=== PATIENT | male | born 1960 | race African-American/Black ===

== ENCOUNTER 2016-09-04 08:35 | Emergency (ER) | payer MEDICARE, OTHER ==
[~2016-09-04] VITALS: Ht 172.7 cm; Wt 90.9 kg
[~2016-09-04 08:35] MED LIST: AMLO2.5T29 PO; BENZ2TAB10 PO; CLON.5 PO; QUET200T PO
[2016-09-04] MEDS ORDERED: SODIUM CHLORIDE 0.9% 1,000 ML IV ONE (09:00)
[2016-09-04 09:04] LABS: BASOPHILS % (AUTO) 0.3 % (0.0-2.0); EOSINOPHILS % (AUTO) 1.4 % (1.0-6.0); HEMATOCRIT 42.6 % (41-53); HEMOGLOBIN 13.8 g/dL (13.5-17.5); LYMPHOCYTES # (AUTO) 1.5 K/uL (1.0-4.8); LYMPHOCYTES % (AUTO) 24.8 % (22.0-44.0); MEAN CORPUSCULAR HGB CONC 32.3 G/dL (31.0-37.0); MEAN CORPUSCULAR VOLUME 87 fL (80-100); MONOCYTES # (AUTO) 0.4 K/uL (0.1-1.0); NEUTROPHILS % (AUTO) 66.5 % (40.0-70.0); PLATELET COUNT (AUTO) 162 K/uL (150-450); RED BLOOD CELL COUNT(AUTO) 4.92 MIL/uL (4.50-5.90); RED CELL DISTRIBUTION WIDTH 13.8 % (11.5-14.5)
[2016-09-04 09:09] LABS: ANION GAP 7 mmol/L (8-16); CALCIUM, TOTAL 8.6 mg/dL (8.8-10.5); CARBON DIOXIDE 29 mmol/L (22-29); CHLORIDE 105 mmol/L (98-107); GLOMERULAR FILTR. RATE CALC > 60 mL/min (>60); POTASSIUM 3.5 mmol/L (3.5-5.1); SODIUM SERUM 141 mmol/L (136-145); UREA NITROGEN, BLOOD 16 mg/dL (7-18)
[2016-09-04 09:11] LABS: GLUCOSE, URINE (UA) NEGATIVE (NEGATIVE); KETONES,URINE NEGATIVE (NEGATIVE); LEUKOCYTE ESTERASE ,URINE NEGATIVE (NEGATIVE); OCCULT BLOOD,URINE NEGATIVE (NEGATIVE); PROTEIN,URINE NEGATIVE (NEGATIVE)
[2016-09-04 09:15] LABS: ADD UA MICROSCOPIC NO; APPEARANCE,URINE HAZY (CLEAR)
[2016-09-04 09:15] LABS: ALANINE AMINOTRANSFERASE 24 U/L (12-78); ALBUMIN 3.9 g/dL (3.4-5.0); ASPARTATE AMINOTRANSFERASE 27 U/L (15-37); BILIRUBIN,TOTAL 0.8 mg/dL (0.1-1.0); TOTAL PROTEIN, SERUM 7.4 g/dL (6.4-8.2)
[2016-09-04 10:30] VITALS: BP 139/94
== END 2016-09-04 11:21 | disposition home or self-care (01) ==
LOC: EMS 08:39
DX: K59.00 Constipation, unspecified (principal); I10 Essential (primary) hypertension; Z88.8 Allergy status to other drugs, medicaments and biological substances
CPT/HCPCS: 36415; 74010; 80053; 81003; 83690; 85025; 96360; 99285; J7030

== ENCOUNTER 2017-11-18 08:54 | Emergency (ER) | payer MEDICARE, OTHER ==
[~2017-11-18] VITALS: Ht 170.2 cm; Wt 75.0 kg
[2017-11-18] MEDS ORDERED: LORazepam 2 MG TABLET PO ONE (10:45)
[2017-11-18 11:05] LABS: BASOPHILS % (AUTO) 0.5 % (0.0-2.0); EOSINOPHILS % (AUTO) 1.5 % (1.0-6.0); HEMATOCRIT 40.1 % (41-53); HEMOGLOBIN 14.1 g/dL (13.5-17.5); LYMPHOCYTES # (AUTO) 1.3 K/uL (1.0-4.8); MEAN CORPUSCULAR HEMOGLOBIN 29.7 pg (26.0-34.0); MEAN CORPUSCULAR HGB CONC 35.1 G/dL (31.0-37.0); MEAN CORPUSCULAR VOLUME 85 fL (80-100); MONOCYTES # (AUTO) 0.4 K/uL (0.1-1.0); MONOCYTES % (AUTO) 8.5 % (2.0-9.0); NEUTROPHILS # (AUTO) 3.4 K/uL (1.8-7.7); NEUTROPHILS % (AUTO) 64.5 % (40.0-70.0); PLATELET COUNT (AUTO) 149 K/uL (150-450); RED BLOOD CELL COUNT(AUTO) 4.75 MIL/uL (4.50-5.90); RED CELL DISTRIBUTION WIDTH 13.8 % (11.5-14.5)
[2017-11-18 11:25] LABS: ANION GAP 13 mmol/L (8-16); CALCIUM, TOTAL 8.8 mg/dL (8.8-10.5); CARBON DIOXIDE 23 mmol/L (22-29); CHLORIDE 107 mmol/L (98-107); CREATININE 0.94 mg/dL (0.60-1.30); GLOMERULAR FILTR. RATE CALC > 60 mL/min (>60); GLUCOSE,RANDOM 93 mg/dL (70-110); POTASSIUM 3.1 mmol/L (3.5-5.1); SODIUM SERUM 143 mmol/L (136-145); UREA NITROGEN, BLOOD 15 mg/dL (7-18)
[2017-11-18 11:30] LABS: ALANINE AMINOTRANSFERASE 24 U/L (12-78); ALBUMIN 3.8 g/dL (3.4-5.0); ALKALINE PHOSPHATASE 70 U/L (46-116); ASPARTATE AMINOTRANSFERASE 29 U/L (15-37); BILIRUBIN,TOTAL 0.8 mg/dL (0.1-1.0); LIPASE 68 U/L (73-393); TOTAL PROTEIN, SERUM 7.1 g/dL (6.4-8.2)
[2017-11-18] MEDS ORDERED: POTASSIUM CHLORIDE 20 MEQ ER TABLET PO ONE (11:45)
[2017-11-18 13:01] VITALS: BP 147/97
== END 2017-11-18 13:30 | disposition home or self-care (01) ==
LOC: EMS 08:55
DX: F41.9 Anxiety disorder, unspecified (principal); K59.00 Constipation, unspecified; F31.9 Bipolar disorder, unspecified; F20.9 Schizophrenia, unspecified; I10 Essential (primary) hypertension; Z88.8 Allergy status to other drugs, medicaments and biological substances
CPT/HCPCS: 74019; 99285

== ENCOUNTER 2018-01-13 14:53 | Emergency (ER) | payer MEDICARE, OTHER ==
[~2018-01-13] VITALS: Ht 170.2 cm; Wt 77.3 kg
[2018-01-13 16:43] VITALS: BP 146/84
[2018-01-13 16:48] LABS: BASOPHILS % (AUTO) 0.3 % (0.0-2.0); EOSINOPHILS % (AUTO) 0.5 % (1.0-6.0); HEMATOCRIT 41.6 % (41-53); HEMOGLOBIN 13.9 g/dL (13.5-17.5); LYMPHOCYTES % (AUTO) 28.1 % (22.0-44.0); MEAN CORPUSCULAR HEMOGLOBIN 28.5 pg (26.0-34.0); MEAN CORPUSCULAR HGB CONC 33.3 G/dL (31.0-37.0); MEAN CORPUSCULAR VOLUME 86 fL (80-100); MONOCYTES # (AUTO) 0.6 K/uL (0.1-1.0); NEUTROPHILS # (AUTO) 4.5 K/uL (1.8-7.7); NEUTROPHILS % (AUTO) 63.1 % (40.0-70.0); PLATELET COUNT (AUTO) 159 K/uL (150-450); RED BLOOD CELL COUNT(AUTO) 4.86 MIL/uL (4.50-5.90); RED CELL DISTRIBUTION WIDTH 13.9 % (11.5-14.5)
[2018-01-13] MEDS ORDERED: VALS160T2 PO (16:57)
[2018-01-13 17:01] LABS: ANION GAP 10 mmol/L (8-16); CALCIUM, TOTAL 8.5 mg/dL (8.8-10.5); CARBON DIOXIDE 25 mmol/L (22-29); CHLORIDE 109 mmol/L (98-107); CREATININE 1.04 mg/dL (0.60-1.30); GLOMERULAR FILTR. RATE CALC > 60 mL/min (>60); GLUCOSE,RANDOM 94 mg/dL (70-110); SODIUM SERUM 144 mmol/L (136-145); UREA NITROGEN, BLOOD 16 mg/dL (7-18)
[2018-01-13 17:06] LABS: ALANINE AMINOTRANSFERASE 19 U/L (12-78); ALBUMIN 3.6 g/dL (3.4-5.0); ALKALINE PHOSPHATASE 63 U/L (46-116); ASPARTATE AMINOTRANSFERASE 25 U/L (15-37); BILIRUBIN,TOTAL 0.9 mg/dL (0.1-1.0); TOTAL PROTEIN, SERUM 7.1 g/dL (6.4-8.2)
[2018-01-13] MEDS ORDERED: BENZTROPINE MESYLATE 2 MG TABLET PO ONE (17:15)
[2018-01-13] MEDS ORDERED: POTASSIUM CHLORIDE 20 MEQ ER TABLET PO ONE (17:30)
== END 2018-01-13 18:12 | disposition home or self-care (01) ==
LOC: EMS 14:53
DX: F20.9 Schizophrenia, unspecified (principal); F31.9 Bipolar disorder, unspecified; I10 Essential (primary) hypertension; Z88.8 Allergy status to other drugs, medicaments and biological substances
CPT/HCPCS: 36415; 80053; 85025; 99284; G0480

== ENCOUNTER 2018-01-14 09:19 | Emergency (ER) | payer MEDICARE, OTHER ==
[~2018-01-14] VITALS: Ht 170.2 cm; Wt 77.3 kg
[~2018-01-14 09:19] MED LIST changes: +VALS160T2 PO
[2018-01-14 10:33] LABS: BASOPHILS % (AUTO) 0.4 % (0.0-2.0); EOSINOPHILS % (AUTO) 1.1 % (1.0-6.0); HEMATOCRIT 41.2 % (41-53); HEMOGLOBIN 13.8 g/dL (13.5-17.5); LYMPHOCYTES # (AUTO) 1.4 K/uL (1.0-4.8); LYMPHOCYTES % (AUTO) 33.6 % (22.0-44.0); MEAN CORPUSCULAR HEMOGLOBIN 29.2 pg (26.0-34.0); MEAN CORPUSCULAR HGB CONC 33.4 G/dL (31.0-37.0); MEAN CORPUSCULAR VOLUME 87 fL (80-100); MONOCYTES # (AUTO) 0.3 K/uL (0.1-1.0); MONOCYTES % (AUTO) 8.2 % (2.0-9.0); NEUTROPHILS # (AUTO) 2.4 K/uL (1.8-7.7); NEUTROPHILS % (AUTO) 56.7 % (40.0-70.0); PLATELET COUNT (AUTO) 146 K/uL (150-450); RED BLOOD CELL COUNT(AUTO) 4.72 MIL/uL (4.50-5.90); RED CELL DISTRIBUTION WIDTH 13.7 % (11.5-14.5)
[2018-01-14 10:37] LABS: ANION GAP 7 mmol/L (8-16); CALCIUM, TOTAL 8.7 mg/dL (8.8-10.5); CARBON DIOXIDE 26 mmol/L (22-29); CHLORIDE 111 mmol/L (98-107); GLOMERULAR FILTR. RATE CALC > 60 mL/min (>60); GLUCOSE,RANDOM 92 mg/dL (70-110); POTASSIUM 3.3 mmol/L (3.5-5.1); SODIUM SERUM 144 mmol/L (136-145); UREA NITROGEN, BLOOD 16 mg/dL (7-18)
[2018-01-14 10:43] LABS: ALANINE AMINOTRANSFERASE 20 U/L (12-78); ALBUMIN 3.4 g/dL (3.4-5.0); ALKALINE PHOSPHATASE 57 U/L (46-116); ASPARTATE AMINOTRANSFERASE 23 U/L (15-37); BILIRUBIN,TOTAL 0.9 mg/dL (0.1-1.0); LIPASE 55 U/L (73-393); TOTAL PROTEIN, SERUM 6.6 g/dL (6.4-8.2)
[2018-01-14 10:45] LABS: APPEARANCE,URINE CLEAR (CLEAR); BILIRUBIN,URINE NEGATIVE (NEGATIVE); GLUCOSE, URINE (UA) NEGATIVE (NEGATIVE); KETONES,URINE TRACE mg/dL (NEGATIVE); LEUKOCYTE ESTERASE ,URINE NEGATIVE (NEGATIVE); NITRATE,URINE NEGATIVE (NEGATIVE); OCCULT BLOOD,URINE NEGATIVE (NEGATIVE); PH,URINE 5.5 (5.0-8.0); PROTEIN,URINE NEGATIVE (NEGATIVE)
[2018-01-14 11:18] VITALS: BP 135/85
== END 2018-01-14 11:19 | disposition home or self-care (01) ==
LOC: EMS 09:21
DX: F20.9 Schizophrenia, unspecified (principal); R10.84 Generalized abdominal pain; F41.9 Anxiety disorder, unspecified; F31.9 Bipolar disorder, unspecified; I10 Essential (primary) hypertension; Z88.8 Allergy status to other drugs, medicaments and biological substances
CPT/HCPCS: 99284

== ENCOUNTER 2018-01-31 10:29 | Inpatient (IN) | payer MEDICARE, MEDICAID ==
[~2018-01-31] VITALS: Ht 170.2 cm; Wt 88.5 kg
[~2018-01-31 10:29] MED LIST changes: -VALS160T2 PO
[2018-01-31] MEDS ORDERED: LORazepam 2 MG/ML VIAL IM ONE ×2 (11:30→13:45)
[2018-01-31] MEDS ORDERED: FluPHENAZine HCL 2.5 MG/ML INJ IM ONE (11:30)
[2018-01-31 12:58] LABS: BASOPHILS % (AUTO) 0.4 % (0.0-2.0); EOSINOPHILS % (AUTO) 0.2 % (1.0-6.0); HEMATOCRIT 43.7 % (41-53); HEMOGLOBIN 14.8 g/dL (13.5-17.5); LYMPHOCYTES # (AUTO) 1.1 K/uL (1.0-4.8); LYMPHOCYTES % (AUTO) 14.9 % (22.0-44.0); MEAN CORPUSCULAR HEMOGLOBIN 29.7 pg (26.0-34.0); MEAN CORPUSCULAR VOLUME 88 fL (80-100); MONOCYTES # (AUTO) 0.5 K/uL (0.1-1.0); MONOCYTES % (AUTO) 6.9 % (2.0-9.0); NEUTROPHILS # (AUTO) 5.8 K/uL (1.8-7.7); NEUTROPHILS % (AUTO) 77.6 % (40.0-70.0); PLATELET COUNT (AUTO) 181 K/uL (150-450)
[2018-01-31 13:19] LABS: ANION GAP 15 mmol/L (8-16); CALCIUM, TOTAL 9.9 mg/dL (8.8-10.5); CARBON DIOXIDE 26 mmol/L (22-29); CHLORIDE 110 mmol/L (98-107); CREATININE 1.47 mg/dL (0.60-1.30); GLOMERULAR FILTR. RATE CALC 60 mL/min (>60); GLUCOSE,RANDOM 79 mg/dL (70-110); POTASSIUM 4.7 mmol/L (3.5-5.1); SODIUM SERUM 151 mmol/L (136-145); UREA NITROGEN, BLOOD 17 mg/dL (7-18)
[2018-01-31 13:24] LABS: ALANINE AMINOTRANSFERASE 27 U/L (12-78); ALBUMIN 4.1 g/dL (3.4-5.0); ALKALINE PHOSPHATASE 73 U/L (46-116); ASPARTATE AMINOTRANSFERASE 38 U/L (15-37); BILIRUBIN,TOTAL 0.9 mg/dL (0.1-1.0); TOTAL PROTEIN, SERUM 7.3 g/dL (6.4-8.2)
[2018-01-31] MEDS ORDERED: HydrOXYzine PAMOATE 50 MG CAPSULE PO PRN (15:15)
[2018-01-31] MEDS ORDERED: MAGNESIUM HYDROXIDE SUSPENSION 30 ML UDCUP PO PRN (15:15)
[2018-01-31] MEDS ORDERED: MAG HYDROX/AL HYDROX/SIMETH ES 30 ML SUSPENSION UDCUP PO PRN (15:15)
[2018-01-31] MEDS ORDERED: ACETAMINOPHEN 325 MG TABLET PO PRN (15:15)
[2018-01-31] MEDS ORDERED: TUBERCULIN, PURIFIED PROTEIN DERIVATIVE 5 TU/0.1 ML SYG ID ONE (15:15)
[2018-01-31] MEDS ORDERED: GuaiFENesin/D-METHORPHAN [SUGAR-FREE] 200-20MG/10 ML SYRUP UDCUP PO PRN (15:15)
[2018-01-31] MEDS ORDERED: LOPERAMIDE HCL 2 MG CAPSULE PO PRN (15:15)
[2018-01-31] MEDS ORDERED: OLANZapine 5 MG RAPDIS TABLET PO PRN (15:15)
[2018-01-31] MEDS ORDERED: PROMETHAZINE HCL 25 MG TABLET PO PRN (15:15)
[2018-01-31 16:27] LABS: AMPHET/METH SCREEN,URINE NEGATIVE (NEGATIVE); BARBITURATE SCREEN, URINE NEGATIVE (NEGATIVE); BENZODIAZEPINES SCREEN,URINE NEGATIVE (NEGATIVE); CANNABINOID SCREEN,URINE NEGATIVE (NEGATIVE); COCAINE SCREEN,URINE NEGATIVE (NEGATIVE); METHADONE SCREEN, URINE NEGATIVE (NEGATIVE); OPIATE SCREEN,URINE NEGATIVE (NEGATIVE); PHENCYCLIDINE SCREEN,URINE NEGATIVE (NEGATIVE)
[2018-01-31] MEDS: QUEtiapine FUMARATE 100 MG TABLET PO PRN (19:37)
[2018-01-31] MEDS: LORazepam 2 MG TABLET PO PRN (19:37)
[2018-01-31] MEDS: ClonazePAM 0.5 MG TABLET PO SCH (20:54)
[2018-01-31] MEDS: BENZTROPINE MESYLATE 2 MG TABLET PO SCH (20:54)
[2018-01-31] MEDS: THIAMINE HCL 100 MG TABLET PO SCH (20:55)
[2018-01-31] MEDS ORDERED: OLANZapine 5 MG RAPDIS TABLET PO SCH (21:00)
[2018-01-31 21:07] VITALS: BP 100/64
[2018-01-31] MEDS: PROPRANOLOL HCL 10 MG TABLET PO SCH (21:46)
[2018-01-31] MEDS: QUEtiapine FUMARATE 200 MG TABLET PO SCH (21:46)
[2018-02-01 06:15] VITALS: BP 112/70
[2018-02-01 07:10] LABS: BASOPHILS % (AUTO) 0.3 % (0.0-2.0); EOSINOPHILS % (AUTO) 1.5 % (1.0-6.0); HEMATOCRIT 40.3 % (41-53); HEMOGLOBIN 13.9 g/dL (13.5-17.5); LYMPHOCYTES # (AUTO) 1.5 K/uL (1.0-4.8); LYMPHOCYTES % (AUTO) 22.1 % (22.0-44.0); MEAN CORPUSCULAR HEMOGLOBIN 30.1 pg (26.0-34.0); MEAN CORPUSCULAR HGB CONC 34.6 G/dL (31.0-37.0); MEAN CORPUSCULAR VOLUME 87 fL (80-100); MONOCYTES # (AUTO) 0.6 K/uL (0.1-1.0); MONOCYTES % (AUTO) 8.3 % (2.0-9.0); NEUTROPHILS # (AUTO) 4.6 K/uL (1.8-7.7); NEUTROPHILS % (AUTO) 67.8 % (40.0-70.0); PLATELET COUNT (AUTO) 158 K/uL (150-450); RED BLOOD CELL COUNT(AUTO) 4.64 MIL/uL (4.50-5.90)
[2018-02-01 07:43] LABS: HEMOGLOBIN A1C 5.1 % (4.5-6.2)
[2018-02-01 07:49] LABS: ALANINE AMINOTRANSFERASE 52 U/L (12-78); ALBUMIN 3.2 g/dL (3.4-5.0); ALKALINE PHOSPHATASE 59 U/L (46-116); ANION GAP 8 mmol/L (8-16); ASPARTATE AMINOTRANSFERASE 151 U/L (15-37); BILIRUBIN,TOTAL 0.9 mg/dL (0.1-1.0); CALCIUM, TOTAL 8.4 mg/dL (8.8-10.5); CARBON DIOXIDE 27 mmol/L (22-29); CHLORIDE 108 mmol/L (98-107); CHOL/HDL RATIO 3.2 (4.2-7.3); CHOLESTEROL 139 mg/dL (131-200); CREATININE 1.31 mg/dL (0.60-1.30); FREE T4 (FREE THYROXINE) 0.86 ng/dL (0.76-1.46); GLOMERULAR FILTR. RATE CALC > 60 mL/min (>60); GLUCOSE,RANDOM 99 mg/dL (70-110); HDL CHOLESTEROL 44 mg/dL (40-60); LDL CHOL (CALC.) 83 mg/dL (0-130); POTASSIUM 3.7 mmol/L (3.5-5.1); SODIUM SERUM 143 mmol/L (136-145); THYROID STIMULATING HORMONE 1.34 uIU/mL (0.36-3.74); TOTAL PROTEIN, SERUM 6.3 g/dL (6.4-8.2); TRIGLYCERIDES 62 mg/dL (15-150); UREA NITROGEN, BLOOD 27 mg/dL (7-18)
[2018-02-01 08:33] VITALS: BP 135/92
[2018-02-01] MEDS ORDERED: FLUoxetine HCL 20 MG CAPSULE PO SCH (09:00)
[2018-02-01] MEDS: BENZTROPINE MESYLATE 2 MG TABLET PO SCH ×3 (09:12→16:15)
[2018-02-01] MEDS: THIAMINE HCL 100 MG TABLET PO SCH ×2 (09:12→16:15)
[2018-02-01] MEDS: ClonazePAM 0.5 MG TABLET PO SCH ×2 (09:13→16:15)
[2018-02-01] MEDS: FOLIC ACID 1 MG TABLET PO SCH (09:13)
[2018-02-01] MEDS: PROPRANOLOL HCL 10 MG TABLET PO SCH ×4 (09:13→20:55)
[2018-02-01] MEDS: MULTIVITAMINS WITH MINERALS, THERAPEUTIC TABLET PO SCH (09:13)
[2018-02-01 12:53] VITALS: BP 118/81
[2018-02-01 16:38] VITALS: BP 136/81
[2018-02-01] MEDS: QUEtiapine FUMARATE 200 MG TABLET PO SCH (20:55)
[2018-02-02 05:47] VITALS: BP 117/78
[2018-02-02 07:33] LABS: ALANINE AMINOTRANSFERASE 55 U/L (12-78); ALKALINE PHOSPHATASE 58 U/L (46-116); ANION GAP 8 mmol/L (8-16); ASPARTATE AMINOTRANSFERASE 124 U/L (15-37); BILIRUBIN,TOTAL 0.4 mg/dL (0.1-1.0); CALCIUM, TOTAL 8.1 mg/dL (8.8-10.5); CARBON DIOXIDE 27 mmol/L (22-29); CHLORIDE 109 mmol/L (98-107); CREATININE 1.08 mg/dL (0.60-1.30); GLOMERULAR FILTR. RATE CALC > 60 mL/min (>60); GLUCOSE,RANDOM 93 mg/dL (70-110); POTASSIUM 3.6 mmol/L (3.5-5.1); SODIUM SERUM 144 mmol/L (136-145); TOTAL PROTEIN, SERUM 5.7 g/dL (6.4-8.2); UREA NITROGEN, BLOOD 30 mg/dL (7-18)
[2018-02-02 08:00] VITALS: BP 115/73
[2018-02-02] MEDS ORDERED: MULTIVITAMINS WITH IRON TABLET PO SCH (09:00)
[2018-02-02] MEDS: FOLIC ACID 1 MG TABLET PO SCH (09:10)
[2018-02-02] MEDS: PROPRANOLOL HCL 10 MG TABLET PO SCH ×4 (09:10→21:12)
[2018-02-02] MEDS: BENZTROPINE MESYLATE 2 MG TABLET PO SCH ×3 (09:11→17:10)
[2018-02-02] MEDS: MULTIVITAMINS WITH MINERALS, THERAPEUTIC TABLET PO SCH (09:11)
[2018-02-02] MEDS: THIAMINE HCL 100 MG TABLET PO SCH ×2 (09:11→17:10)
[2018-02-02] MEDS: ClonazePAM 0.5 MG TABLET PO SCH ×2 (09:11→17:10)
[2018-02-02 16:30] VITALS: BP 138/90
[2018-02-02] MEDS: QUEtiapine FUMARATE 200 MG TABLET PO SCH (21:12)
[2018-02-03 05:13] VITALS: BP 127/84
[2018-02-03 08:31] VITALS: BP 134/88
[2018-02-03] MEDS: BENZTROPINE MESYLATE 2 MG TABLET PO SCH ×3 (08:41→17:18)
[2018-02-03] MEDS: FOLIC ACID 1 MG TABLET PO SCH (08:41)
[2018-02-03] MEDS: THIAMINE HCL 100 MG TABLET PO SCH ×2 (08:41→17:18)
[2018-02-03] MEDS: MULTIVITAMINS WITH MINERALS, THERAPEUTIC TABLET PO SCH (08:41)
[2018-02-03] MEDS: PROPRANOLOL HCL 10 MG TABLET PO SCH ×4 (08:41→21:09)
[2018-02-03] MEDS: ClonazePAM 0.5 MG TABLET PO SCH ×2 (08:41→17:18)
[2018-02-03 12:10] VITALS: BP 153/93
[2018-02-03 14:00] VITALS: BP 134/91
[2018-02-03 16:00] VITALS: BP 140/90
[2018-02-03] MEDS: LORazepam 2 MG TABLET PO PRN (17:18)
[2018-02-03] MEDS: QUEtiapine FUMARATE 100 MG TABLET PO PRN (17:18)
[2018-02-03] MEDS: ZOLPIDEM TARTRATE 10 MG TABLET PO PRN (21:09)
[2018-02-03] MEDS: QUEtiapine FUMARATE 200 MG TABLET PO SCH (21:09)
[2018-02-03] MEDS ORDERED: *PATIENT'S OWN MED [ENTER DRUG, DOSE, FREQUENCY IN COMMENTS] CLINICAL ONE (22:00)
[2018-02-04 06:07] VITALS: BP 142/89
[2018-02-04 08:11] VITALS: BP 149/89
[2018-02-04] MEDS: VALBENAZINE 40 MG PO SCH (09:58)
[2018-02-04] MEDS: BENZTROPINE MESYLATE 2 MG TABLET PO SCH ×3 (09:58→16:48)
[2018-02-04] MEDS: MULTIVITAMINS WITH MINERALS, THERAPEUTIC TABLET PO SCH (09:59)
[2018-02-04] MEDS: ClonazePAM 0.5 MG TABLET PO SCH ×2 (09:59→16:48)
[2018-02-04] MEDS: FOLIC ACID 1 MG TABLET PO SCH (09:59)
[2018-02-04] MEDS: THIAMINE HCL 100 MG TABLET PO SCH ×2 (09:59→16:48)
[2018-02-04] MEDS: PROPRANOLOL HCL 10 MG TABLET PO SCH ×4 (09:59→20:23)
[2018-02-04 16:00] VITALS: BP 137/92
[2018-02-04] MEDS: LORazepam 2 MG TABLET PO PRN (16:48)
[2018-02-04] MEDS: QUEtiapine FUMARATE 200 MG TABLET PO SCH (20:23)
[2018-02-04] MEDS: ZOLPIDEM TARTRATE 10 MG TABLET PO PRN (20:23)
[2018-02-05 06:18] VITALS: BP 140/89
[2018-02-05 08:20] VITALS: BP 118/72
[2018-02-05] MEDS: PROPRANOLOL HCL 10 MG TABLET PO SCH ×4 (08:43→20:19)
[2018-02-05] MEDS: BENZTROPINE MESYLATE 2 MG TABLET PO SCH ×3 (08:43→16:51)
[2018-02-05] MEDS: FOLIC ACID 1 MG TABLET PO SCH (08:43)
[2018-02-05] MEDS: MULTIVITAMINS WITH MINERALS, THERAPEUTIC TABLET PO SCH (08:43)
[2018-02-05] MEDS: THIAMINE HCL 100 MG TABLET PO SCH ×2 (08:43→16:53)
[2018-02-05] MEDS: ClonazePAM 0.5 MG TABLET PO SCH ×2 (08:43→16:51)
[2018-02-05] MEDS: VALBENAZINE 40 MG PO SCH (08:44)
[2018-02-05 16:00] VITALS: BP 138/89
[2018-02-05] MEDS: QUEtiapine FUMARATE 200 MG TABLET PO SCH (20:14)
[2018-02-06 05:54] VITALS: BP 140/78
[2018-02-06 08:43] VITALS: BP 138/90
[2018-02-06] MEDS: BENZTROPINE MESYLATE 2 MG TABLET PO SCH ×3 (10:10→17:04)
[2018-02-06] MEDS: ClonazePAM 0.5 MG TABLET PO SCH ×2 (10:10→17:04)
[2018-02-06] MEDS: MULTIVITAMINS WITH MINERALS, THERAPEUTIC TABLET PO SCH (10:10)
[2018-02-06] MEDS: PROPRANOLOL HCL 10 MG TABLET PO SCH ×4 (10:10→20:21)
[2018-02-06] MEDS: VALBENAZINE 40 MG PO SCH (10:10)
[2018-02-06] MEDS: FOLIC ACID 1 MG TABLET PO SCH (10:10)
[2018-02-06] MEDS: THIAMINE HCL 100 MG TABLET PO SCH ×2 (10:13→17:04)
[2018-02-06] MEDS: QUEtiapine FUMARATE 25 MG TABLET PO SCH (17:09)
[2018-02-06 17:43] VITALS: BP 142/81
[2018-02-06] MEDS: QUEtiapine FUMARATE 200 MG TABLET PO SCH (20:15)
[2018-02-07 06:01] VITALS: BP 137/94
[2018-02-07 08:09] VITALS: BP 140/86
[2018-02-07] MEDS: BENZTROPINE MESYLATE 2 MG TABLET PO SCH ×3 (08:48→16:00)
[2018-02-07] MEDS: ClonazePAM 0.5 MG TABLET PO SCH ×2 (08:48→16:00)
[2018-02-07] MEDS: VALBENAZINE 40 MG PO SCH (08:48)
[2018-02-07] MEDS: MULTIVITAMINS WITH MINERALS, THERAPEUTIC TABLET PO SCH (08:48)
[2018-02-07] MEDS: QUEtiapine FUMARATE 25 MG TABLET PO SCH ×3 (08:48→16:00)
[2018-02-07] MEDS: PROPRANOLOL HCL 10 MG TABLET PO SCH ×2 (08:48→12:01)
[2018-02-07] MEDS: FOLIC ACID 1 MG TABLET PO SCH (08:48)
[2018-02-07] MEDS: THIAMINE HCL 100 MG TABLET PO SCH ×2 (08:48→16:00)
[2018-02-07] MEDS: PROPRANOLOL HCL 20 MG TABLET PO SCH (16:00)
[2018-02-07 16:34] VITALS: BP 138/89
[2018-02-07] MEDS: QUEtiapine FUMARATE 200 MG TABLET PO SCH (20:35)
[2018-02-08 05:53] VITALS: BP 139/92
[2018-02-08 08:20] VITALS: BP 134/89
[2018-02-08] MEDS: THIAMINE HCL 100 MG TABLET PO SCH ×2 (09:11→16:14)
[2018-02-08] MEDS: FOLIC ACID 1 MG TABLET PO SCH (09:11)
[2018-02-08] MEDS: BENZTROPINE MESYLATE 2 MG TABLET PO SCH ×3 (09:12→16:14)
[2018-02-08] MEDS: QUEtiapine FUMARATE 25 MG TABLET PO SCH ×3 (09:12→16:14)
[2018-02-08] MEDS: MULTIVITAMINS WITH MINERALS, THERAPEUTIC TABLET PO SCH (09:12)
[2018-02-08] MEDS: VALBENAZINE 40 MG PO SCH (09:12)
[2018-02-08] MEDS: PROPRANOLOL HCL 20 MG TABLET PO SCH ×3 (09:12→16:14)
[2018-02-08] MEDS: ClonazePAM 0.5 MG TABLET PO SCH ×2 (09:12→16:14)
[2018-02-08 16:22] VITALS: BP 139/70
[2018-02-08] MEDS: QUEtiapine FUMARATE 200 MG TABLET PO SCH (20:11)
[2018-02-09 05:34] VITALS: BP 137/78
[2018-02-09 08:30] VITALS: BP 150/85
[2018-02-09] MEDS: ClonazePAM 0.5 MG TABLET PO SCH ×2 (09:09→16:17)
[2018-02-09] MEDS: VALBENAZINE 40 MG PO SCH (09:09)
[2018-02-09] MEDS: QUEtiapine FUMARATE 25 MG TABLET PO SCH ×3 (09:09→16:17)
[2018-02-09] MEDS: PROPRANOLOL HCL 20 MG TABLET PO SCH ×3 (09:09→16:17)
[2018-02-09] MEDS: THIAMINE HCL 100 MG TABLET PO SCH ×2 (09:09→16:17)
[2018-02-09] MEDS: MULTIVITAMINS WITH MINERALS, THERAPEUTIC TABLET PO SCH (09:09)
[2018-02-09] MEDS: FOLIC ACID 1 MG TABLET PO SCH (09:09)
[2018-02-09] MEDS: BENZTROPINE MESYLATE 2 MG TABLET PO SCH ×3 (09:09→16:17)
[2018-02-09 16:05] VITALS: BP 148/102
[2018-02-09 20:22] VITALS: BP 140/100
[2018-02-09] MEDS: QUEtiapine FUMARATE 200 MG TABLET PO SCH (20:47)
[2018-02-10 05:02] VITALS: BP 139/96
[2018-02-10 08:13] VITALS: BP 147/80
[2018-02-10] MEDS: ClonazePAM 0.5 MG TABLET PO SCH ×2 (09:23→16:30)
[2018-02-10] MEDS: THIAMINE HCL 100 MG TABLET PO SCH (09:23)
[2018-02-10] MEDS: FOLIC ACID 1 MG TABLET PO SCH (09:23)
[2018-02-10] MEDS: VALBENAZINE 40 MG PO SCH ×2 (09:23→16:31)
[2018-02-10] MEDS: MULTIVITAMINS WITH MINERALS, THERAPEUTIC TABLET PO SCH (09:23)
[2018-02-10] MEDS: PROPRANOLOL HCL 20 MG TABLET PO SCH ×3 (09:23→16:30)
[2018-02-10] MEDS: QUEtiapine FUMARATE 25 MG TABLET PO SCH ×3 (09:23→16:31)
[2018-02-10] MEDS: BENZTROPINE MESYLATE 2 MG TABLET PO SCH ×3 (09:23→16:30)
[2018-02-10 16:00] VITALS: BP 140/88
[2018-02-10] MEDS: QUEtiapine FUMARATE 200 MG TABLET PO SCH (20:12)
[2018-02-11 05:43] VITALS: BP 145/92
[2018-02-11 08:29] VITALS: BP 146/91
[2018-02-11] MEDS: VALBENAZINE 40 MG PO SCH ×3 (09:00→16:31)
[2018-02-11] MEDS: ClonazePAM 0.5 MG TABLET PO SCH ×2 (09:23→16:31)
[2018-02-11] MEDS: PROPRANOLOL HCL 20 MG TABLET PO SCH ×3 (09:23→16:31)
[2018-02-11] MEDS: QUEtiapine FUMARATE 25 MG TABLET PO SCH ×3 (09:23→16:31)
[2018-02-11] MEDS: BENZTROPINE MESYLATE 2 MG TABLET PO SCH ×3 (09:23→16:31)
[2018-02-11] MEDS: MULTIVITAMINS WITH MINERALS, THERAPEUTIC TABLET PO SCH (09:23)
[2018-02-11 16:27] VITALS: BP 140/89
[2018-02-11] MEDS: QUEtiapine FUMARATE 200 MG TABLET PO SCH (20:33)
[2018-02-12 06:08] VITALS: BP 141/95
[2018-02-12 08:11] VITALS: BP 146/90
[2018-02-12] MEDS: ClonazePAM 0.5 MG TABLET PO SCH ×2 (09:15→16:33)
[2018-02-12] MEDS: PROPRANOLOL HCL 20 MG TABLET PO SCH ×3 (09:15→16:33)
[2018-02-12] MEDS: QUEtiapine FUMARATE 25 MG TABLET PO SCH ×3 (09:15→16:32)
[2018-02-12] MEDS: VALBENAZINE 40 MG PO SCH ×2 (09:15→16:33)
[2018-02-12] MEDS: MULTIVITAMINS WITH MINERALS, THERAPEUTIC TABLET PO SCH (09:15)
[2018-02-12] MEDS: BENZTROPINE MESYLATE 2 MG TABLET PO SCH ×3 (09:15→16:32)
[2018-02-12 16:21] VITALS: BP 140/88
[2018-02-12] MEDS: QUEtiapine FUMARATE 200 MG TABLET PO SCH (21:04)
[2018-02-13 06:29] VITALS: BP 156/86
[2018-02-13 08:09] VITALS: BP 142/80
[2018-02-13] MEDS: VALBENAZINE 40 MG PO SCH ×2 (09:00→16:57)
[2018-02-13] MEDS: MULTIVITAMINS WITH MINERALS, THERAPEUTIC TABLET PO SCH (09:01)
[2018-02-13] MEDS: BENZTROPINE MESYLATE 2 MG TABLET PO SCH ×3 (09:01→16:57)
[2018-02-13] MEDS: PROPRANOLOL HCL 20 MG TABLET PO SCH ×3 (09:01→16:57)
[2018-02-13] MEDS: QUEtiapine FUMARATE 25 MG TABLET PO SCH ×3 (09:01→16:57)
[2018-02-13] MEDS: ClonazePAM 0.5 MG TABLET PO SCH ×2 (09:01→16:57)
[2018-02-13] MEDS ORDERED: CLON.5 PO (15:41)
[2018-02-13] MEDS ORDERED: BENZ2TAB10 PO (15:41)
[2018-02-13] MEDS ORDERED: PROP20TA96 PO (15:41)
[2018-02-13] MEDS ORDERED: QUET200T29 PO (15:41)
[2018-02-13] MEDS ORDERED: QUET25TA34 PO (15:41)
[2018-02-13 16:00] VITALS: BP 138/85
[2018-02-13] MEDS: QUEtiapine FUMARATE 200 MG TABLET PO SCH (20:59)
[2018-02-14 06:46] VITALS: BP 142/88
[2018-02-14 08:09] VITALS: BP 139/90
[2018-02-14] MEDS ORDERED: CLON0.5T PO (08:40)
[2018-02-14] MEDS ORDERED: PROP10TA72 PO (08:41)
[2018-02-14] MEDS ORDERED: QUET50TA PO (08:42)
[2018-02-14] MEDS: PROPRANOLOL HCL 20 MG TABLET PO SCH ×3 (09:00→16:57)
[2018-02-14] MEDS: QUEtiapine FUMARATE 25 MG TABLET PO SCH ×3 (09:00→16:56)
[2018-02-14] MEDS: VALBENAZINE 40 MG PO SCH ×2 (09:00→16:56)
[2018-02-14] MEDS: ClonazePAM 0.5 MG TABLET PO SCH ×2 (09:00→16:57)
[2018-02-14] MEDS: BENZTROPINE MESYLATE 2 MG TABLET PO SCH ×3 (09:00→16:57)
[2018-02-14] MEDS: MULTIVITAMINS WITH MINERALS, THERAPEUTIC TABLET PO SCH (09:00)
[2018-02-14] MEDS ORDERED: DiphenhydrAMINE HCL 50 MG/ML VIAL IM ONE (10:30)
[2018-02-14] MEDS ORDERED: LORazepam 2 MG/ML VIAL IM ONE (10:30)
[2018-02-14 16:00] VITALS: BP 144/89
[2018-02-14] MEDS: LORazepam 2 MG TABLET PO PRN (16:57)
[2018-02-14] MEDS: QUEtiapine FUMARATE 300 MG TABLET PO SCH (20:50)
[2018-02-15 07:38] VITALS: BP 140/78
[2018-02-15 08:09] VITALS: BP 131/74
[2018-02-15] MEDS: PROPRANOLOL HCL 20 MG TABLET PO SCH ×3 (08:40→17:05)
[2018-02-15] MEDS: MULTIVITAMINS WITH MINERALS, THERAPEUTIC TABLET PO SCH (08:40)
[2018-02-15] MEDS: QUEtiapine FUMARATE 25 MG TABLET PO SCH ×3 (08:40→17:04)
[2018-02-15] MEDS: ClonazePAM 0.5 MG TABLET PO SCH ×2 (08:40→17:05)
[2018-02-15] MEDS: VALBENAZINE 40 MG PO SCH ×2 (08:41→17:05)
[2018-02-15] MEDS: BENZTROPINE MESYLATE 2 MG TABLET PO SCH ×3 (08:41→17:04)
[2018-02-15 16:00] VITALS: BP 140/90
[2018-02-15] MEDS: QUEtiapine FUMARATE 300 MG TABLET PO SCH (20:45)
[2018-02-16 00:58] VITALS: BP 133/89
[2018-02-16 08:12] VITALS: BP 138/84
[2018-02-16] MEDS: QUEtiapine FUMARATE 25 MG TABLET PO SCH ×3 (08:14→16:23)
[2018-02-16] MEDS: VALBENAZINE 40 MG PO SCH ×2 (08:14→16:23)
[2018-02-16] MEDS: PROPRANOLOL HCL 20 MG TABLET PO SCH ×3 (08:14→16:23)
[2018-02-16] MEDS: MULTIVITAMINS WITH MINERALS, THERAPEUTIC TABLET PO SCH (08:15)
[2018-02-16] MEDS: ClonazePAM 0.5 MG TABLET PO SCH ×2 (08:15→16:23)
[2018-02-16] MEDS: BENZTROPINE MESYLATE 2 MG TABLET PO SCH ×3 (08:15→16:23)
[2018-02-16 16:18] VITALS: BP 142/72
[2018-02-16] MEDS: QUEtiapine FUMARATE 300 MG TABLET PO SCH (20:00)
[2018-02-17 01:05] VITALS: BP 136/78
[2018-02-17 08:00] VITALS: BP 140/89
[2018-02-17] MEDS: ClonazePAM 0.5 MG TABLET PO SCH ×2 (08:47→16:34)
[2018-02-17] MEDS: BENZTROPINE MESYLATE 2 MG TABLET PO SCH ×3 (08:47→16:34)
[2018-02-17] MEDS: QUEtiapine FUMARATE 25 MG TABLET PO SCH ×3 (08:48→16:34)
[2018-02-17] MEDS: VALBENAZINE 40 MG PO SCH ×2 (08:48→16:36)
[2018-02-17] MEDS: PROPRANOLOL HCL 20 MG TABLET PO SCH ×3 (08:48→16:34)
[2018-02-17] MEDS: MULTIVITAMINS WITH MINERALS, THERAPEUTIC TABLET PO SCH (08:48)
[2018-02-17 16:00] VITALS: BP 143/75
[2018-02-17] MEDS: QUEtiapine FUMARATE 300 MG TABLET PO SCH (20:21)
[2018-02-18 02:28] VITALS: BP 138/81
[2018-02-18 08:10] VITALS: BP 132/78
[2018-02-18] MEDS: QUEtiapine FUMARATE 25 MG TABLET PO SCH (08:47)
[2018-02-18] MEDS: VALBENAZINE 40 MG PO SCH (08:47)
[2018-02-18] MEDS: MULTIVITAMINS WITH MINERALS, THERAPEUTIC TABLET PO SCH (08:47)
[2018-02-18] MEDS: PROPRANOLOL HCL 20 MG TABLET PO SCH (08:47)
[2018-02-18] MEDS: BENZTROPINE MESYLATE 2 MG TABLET PO SCH (08:47)
[2018-02-18] MEDS: ClonazePAM 0.5 MG TABLET PO SCH (08:47)
[2018-02-18] MEDS ORDERED: QUET300T2 PO (10:10)
== END 2018-02-18 11:22 | disposition home or self-care (01) | DRG 885 ==
LOC: EMS 10:30 → B3A 18:16
PROVIDERS: ADMIT Psychiatry & Neurology Psychiatry; ATTEND Psychiatry & Neurology Psychiatry
DX: F25.0 Schizoaffective disorder, bipolar type (principal); R45.851 Suicidal ideations; E11.9 Type 2 diabetes mellitus without complications; F16.90 Hallucinogen use, unspecified, uncomplicated; F41.0 Panic disorder [episodic paroxysmal anxiety]; R79.89 Other specified abnormal findings of blood chemistry; G24.01 Drug induced subacute dyskinesia; I10 Essential (primary) hypertension; Z88.8 Allergy status to other drugs, medicaments and biological substances; Z91.14 Patient's other noncompliance with medication regimen; Z91.19 Patient's noncompliance with other medical treatment and regimen; Z79.899 Other long term (current) drug therapy
CPT/HCPCS: 82248; 83036; 84439; 84443; 86592; 90686; 93005; 96372; 99291; G0480; J1200; J2060; J3230; J3490

== ENCOUNTER 2018-03-01 16:15 | Inpatient (IN) | payer MEDICARE, OTHER ==
[~2018-03-01] VITALS: Ht 175.3 cm; Wt 87.2 kg
[~2018-03-01 16:15] MED LIST changes: -AMLO2.5T29 PO; +PROP10TA72 PO; +PROP20TA96 PO; -QUET200T PO; +QUET200T29 PO; +QUET25TA34 PO; +QUET300T2 PO; +QUET50TA PO
[2018-03-01] MEDS ORDERED: LORazepam 2 MG/ML VIAL IM ONE ×2 (17:15→18:00)
[2018-03-01] MEDS ORDERED: DiphenhydrAMINE HCL 50 MG/ML VIAL IM ONE (17:15)
[2018-03-01 17:57] LABS: BASOPHILS % (AUTO) 0.4 % (0.0-2.0); EOSINOPHILS % (AUTO) 0.5 % (1.0-6.0); HEMATOCRIT 42.4 % (41-53); HEMOGLOBIN 14.4 g/dL (13.5-17.5); LYMPHOCYTES # (AUTO) 1.2 K/uL (1.0-4.8); LYMPHOCYTES % (AUTO) 12.5 % (22.0-44.0); MEAN CORPUSCULAR HGB CONC 33.8 G/dL (31.0-37.0); MEAN CORPUSCULAR VOLUME 86 fL (80-100); MONOCYTES # (AUTO) 0.7 K/uL (0.1-1.0); MONOCYTES % (AUTO) 6.9 % (2.0-9.0); NEUTROPHILS # (AUTO) 7.6 K/uL (1.8-7.7); NEUTROPHILS % (AUTO) 79.7 % (40.0-70.0); PLATELET COUNT (AUTO) 161 K/uL (150-450); RED BLOOD CELL COUNT(AUTO) 4.95 MIL/uL (4.50-5.90); RED CELL DISTRIBUTION WIDTH 13.4 % (11.5-14.5)
[2018-03-01] MEDS ORDERED: MORPHINE SULFATE 4 MG/ML SYRINGE IM ONE (18:00)
[2018-03-01 18:10] LABS: ALANINE AMINOTRANSFERASE 25 U/L (12-78); ALBUMIN 3.7 g/dL (3.4-5.0); ALKALINE PHOSPHATASE 81 U/L (46-116); ANION GAP 13 mmol/L (8-16); ASPARTATE AMINOTRANSFERASE 32 U/L (15-37); BILIRUBIN,TOTAL 0.6 mg/dL (0.1-1.0); CALCIUM, TOTAL 9.1 mg/dL (8.8-10.5); CARBON DIOXIDE 24 mmol/L (22-29); CHLORIDE 106 mmol/L (98-107); CREATININE 1.11 mg/dL (0.60-1.30); GLOMERULAR FILTR. RATE CALC > 60 mL/min (>60); GLUCOSE,RANDOM 92 mg/dL (70-110); LIPASE 57 U/L (73-393); SODIUM SERUM 143 mmol/L (136-145); TOTAL PROTEIN, SERUM 7.5 g/dL (6.4-8.2); UREA NITROGEN, BLOOD 16 mg/dL (7-18)
[2018-03-01 18:11] LABS: POTASSIUM 2.9 mmol/L (3.5-5.1)
[2018-03-01] MEDS ORDERED: POTASSIUM CHLORIDE 20 MEQ ER TABLET PO ONE (18:30)
[2018-03-01] MEDS ORDERED: LORazepam 2 MG/ML VIAL IVP ONE (18:45)
[2018-03-01] MEDS ORDERED: SODIUM PHOS/SODIUM BIPHOS 133 ML ENEMA PR ONE (18:45)
[2018-03-01 19:44] LABS: APPEARANCE,URINE CLEAR (CLEAR); BILIRUBIN,URINE NEGATIVE (NEGATIVE); GLUCOSE, URINE (UA) NEGATIVE (NEGATIVE); KETONES,URINE TRACE mg/dL (NEGATIVE); LEUKOCYTE ESTERASE ,URINE NEGATIVE (NEGATIVE); NITRATE,URINE NEGATIVE (NEGATIVE); OCCULT BLOOD,URINE NEGATIVE (NEGATIVE); PH,URINE 6.5 (5.0-8.0); PROTEIN,URINE NEGATIVE (NEGATIVE)
[2018-03-01 19:48] LABS: AMPHET/METH SCREEN,URINE NEGATIVE (NEGATIVE); BARBITURATE SCREEN, URINE NEGATIVE (NEGATIVE); BENZODIAZEPINES SCREEN,URINE NEGATIVE (NEGATIVE); CANNABINOID SCREEN,URINE NEGATIVE (NEGATIVE); COCAINE SCREEN,URINE NEGATIVE (NEGATIVE); METHADONE SCREEN, URINE NEGATIVE (NEGATIVE); OPIATE SCREEN,URINE POSITIVE (NEGATIVE)
[2018-03-01 19:49] LABS: PHENCYCLIDINE SCREEN,URINE NEGATIVE (NEGATIVE)
[2018-03-01] MEDS ORDERED: ONDANSETRON HCL 4 MG/2 ML VIAL IVP PRN ×2 (20:15→22:00)
[2018-03-01] MEDS ORDERED: ACETAMINOPHEN 325 MG TABLET PO PRN ×2 (20:15→22:00)
[2018-03-01 21:56] VITALS: BP 153/70
[2018-03-01] MEDS ORDERED: ZOLPIDEM TARTRATE 5 MG TABLET PO PRN (22:00)
[2018-03-01] MEDS ORDERED: MORPHINE SULFATE 2 MG/ML SYRINGE IVP PRN (22:00)
[2018-03-01] MEDS ORDERED: MAGNESIUM HYDROXIDE SUSPENSION 30 ML UDCUP PO PRN (22:00)
[2018-03-01] MEDS ORDERED: HYDROCODONE/ACETAMINOPHEN 5-325 MG TABLET PO PRN (22:00)
[2018-03-01] MEDS ORDERED: BISACODYL 10 MG RECTAL RECTAL SUPPOSITORY PR PRN (22:00)
[2018-03-01] MEDS: HEPARIN SODIUM,PORCINE 5,000 UNITS/ML VIAL SQ SCH (23:54)
[2018-03-02 04:42] VITALS: BP 130/88
[2018-03-02] MEDS ORDERED: -PHARMACY VACCINE NOTE- MISC ONE (06:45)
[2018-03-02] MEDS ORDERED: PNEUMOCOCCAL VACCINE POLYVALENT 0.5 ML VIAL [PPSV23] IM ONE (06:45)
[2018-03-02] MEDS: MINERAL OIL 300 ML RECTAL PR SCH (07:00)
[2018-03-02 07:04] VITALS: BP 135/75
[2018-03-02] MEDS: HEPARIN SODIUM,PORCINE 5,000 UNITS/ML VIAL SQ SCH ×4 (08:00→23:07)
[2018-03-02] MEDS: DOCUSATE SODIUM 100 MG CAPSULE PO SCH ×2 (08:03→22:09)
[2018-03-02] MEDS: PANTOPRAZOLE SODIUM 40 MG DR TABLET PO SCH (08:04)
[2018-03-02] MEDS: PROPRANOLOL HCL 10 MG TABLET PO SCH ×3 (08:04→22:10)
[2018-03-02 12:02] VITALS: BP 148/98
[2018-03-02] MEDS ORDERED: SODIUM CHLORIDE 0.9% 100 ML ONE (12:51)
[2018-03-02 15:33] VITALS: BP 135/95
[2018-03-02] MEDS ORDERED: LORazepam 1 MG TABLET PO PRN (16:00)
[2018-03-02] MEDS ORDERED: QUEtiapine FUMARATE 100 MG TABLET PO PRN (16:00)
[2018-03-02] MEDS: QUEtiapine FUMARATE 25 MG TABLET PO SCH (17:23)
[2018-03-02 19:00] LABS: BASOPHILS % (AUTO) 0.5 % (0.0-2.0); EOSINOPHILS % (AUTO) 2.2 % (1.0-6.0); HEMATOCRIT 39.8 % (41-53); HEMOGLOBIN 13.4 g/dL (13.5-17.5); LYMPHOCYTES # (AUTO) 2.3 K/uL (1.0-4.8); MEAN CORPUSCULAR HEMOGLOBIN 29.2 pg (26.0-34.0); MEAN CORPUSCULAR HGB CONC 33.7 G/dL (31.0-37.0); MEAN CORPUSCULAR VOLUME 87 fL (80-100); MONOCYTES # (AUTO) 0.8 K/uL (0.1-1.0); MONOCYTES % (AUTO) 10.1 % (2.0-9.0); NEUTROPHILS # (AUTO) 4.3 K/uL (1.8-7.7); NEUTROPHILS % (AUTO) 57.2 % (40.0-70.0); PLATELET COUNT (AUTO) 156 K/uL (150-450); RED BLOOD CELL COUNT(AUTO) 4.59 MIL/uL (4.50-5.90); RED CELL DISTRIBUTION WIDTH 13.7 % (11.5-14.5)
[2018-03-02 19:14] LABS: ANION GAP 8 mmol/L (8-16); CALCIUM, TOTAL 8.3 mg/dL (8.8-10.5); CARBON DIOXIDE 29 mmol/L (22-29); CHLORIDE 107 mmol/L (98-107); GLOMERULAR FILTR. RATE CALC > 60 mL/min (>60); GLUCOSE,RANDOM 99 mg/dL (70-110); POTASSIUM 3.5 mmol/L (3.5-5.1); SODIUM SERUM 144 mmol/L (136-145); UREA NITROGEN, BLOOD 18 mg/dL (7-18)
[2018-03-02 19:21] VITALS: BP 138/91
[2018-03-02] MEDS ORDERED: QUEtiapine FUMARATE 200 MG TABLET PO SCH (21:00)
[2018-03-02] MEDS: ClonazePAM 0.5 MG TABLET PO SCH (22:09)
[2018-03-02 23:43] VITALS: BP 111/71
[2018-03-03 04:57] VITALS: BP 124/76
[2018-03-03 06:38] LABS: ANION GAP 9 mmol/L (8-16); CALCIUM, TOTAL 8.2 mg/dL (8.8-10.5); CARBON DIOXIDE 27 mmol/L (22-29); CHLORIDE 107 mmol/L (98-107); CREATININE 1.11 mg/dL (0.60-1.30); GLOMERULAR FILTR. RATE CALC > 60 mL/min (>60); GLUCOSE,RANDOM 94 mg/dL (70-110); POTASSIUM 3.2 mmol/L (3.5-5.1); SODIUM SERUM 143 mmol/L (136-145); UREA NITROGEN, BLOOD 21 mg/dL (7-18)
[2018-03-03] MEDS: MINERAL OIL 300 ML RECTAL PR SCH (07:00)
[2018-03-03 08:17] VITALS: BP 149/89
[2018-03-03] MEDS: PANTOPRAZOLE SODIUM 40 MG DR TABLET PO SCH (08:59)
[2018-03-03] MEDS: DOCUSATE SODIUM 100 MG CAPSULE PO SCH (08:59)
[2018-03-03] MEDS: PROPRANOLOL HCL 10 MG TABLET PO SCH ×2 (08:59→16:50)
[2018-03-03] MEDS: ClonazePAM 0.5 MG TABLET PO SCH (08:59)
[2018-03-03] MEDS: HEPARIN SODIUM,PORCINE 5,000 UNITS/ML VIAL SQ SCH ×2 (08:59→16:00)
[2018-03-03] MEDS ORDERED: QUEtiapine FUMARATE 25 MG TABLET PO SCH ×2 (09:00→13:00)
[2018-03-03] MEDS ORDERED: POTASSIUM CHLORIDE 20 MEQ ER TABLET PO ONE (11:00)
[2018-03-03 11:22] VITALS: BP 133/89
[2018-03-03] MEDS: QUEtiapine FUMARATE 25 MG TABLET PO SCH (16:50)
== END 2018-03-03 17:05 | disposition home or self-care (01) | DRG 389 ==
LOC: EMS 16:18 → 5N 20:30
PROVIDERS: ADMIT Internal Medicine; ATTEND Internal Medicine
PROC: 3E0234Z Introduction of Serum, Toxoid and Vaccine into Muscle, Percutaneous Approach (ICD-10-PCS; principal; 2018-03-02)
DX: K56.7 Ileus, unspecified (principal); F20.0 Paranoid schizophrenia; I10 Essential (primary) hypertension; E87.6 Hypokalemia; F31.9 Bipolar disorder, unspecified; Z88.8 Allergy status to other drugs, medicaments and biological substances; K59.00 Constipation, unspecified; R00.0 Tachycardia, unspecified; Z23 Encounter for immunization
CPT/HCPCS: 51702; 74176; 90686; 93005; 96372; G0378; J1200; J1644; J2060; J2270; J3230; J7050

== ENCOUNTER → 2018-05-06 | Outpatient (CLI) | payer MEDICARE, OTHER ==
[~2018-05-06] MED LIST changes: -PROP10TA72 PO; -QUET200T29 PO; -QUET300T2 PO; -QUET50TA PO
[2018-05-26 08:18] LABS: CHOL/HDL RATIO 3.6 (4.2-7.3); HEMOGLOBIN A1C 5.4 % (4.5-6.2)
== END | disposition home or self-care (01) ==
LOC: LABMN 12:10
PROVIDERS: ATTEND Psychiatry & Neurology Psychiatry
DX: F20.0 Paranoid schizophrenia (principal); E11.9 Type 2 diabetes mellitus without complications; I10 Essential (primary) hypertension; Z88.8 Allergy status to other drugs, medicaments and biological substances; Z72.89 Other problems related to lifestyle; F14.90 Cocaine use, unspecified, uncomplicated
CPT/HCPCS: 82947; 83036

== ENCOUNTER → 2018-06-24 | Outpatient (CLI) | payer MEDICARE, MEDICAID, SELFPAY ==
[~2018-06-24] VITALS: Ht 170.2 cm; Wt 82.5 kg
[~2018-06-24] MED LIST changes: +AMLO2.5T4 PO; +VALS160T2 PO
[2018-06-24 15:53] VITALS: BP 112/41
== END | disposition home or self-care (01) ==
LOC: SRCNTR 09:27
PROVIDERS: ATTEND Internal Medicine
DX: G47.33 Obstructive sleep apnea (adult) (pediatric) (principal)
CPT/HCPCS: G0463

== ENCOUNTER → 2020-09-26 | Outpatient (CLI) | payer MEDICARE, OTHER ==
[~2020-09-26] MED LIST changes: -AMLO2.5T4 PO; +AMLO2.5T96 PO; -BENZ2TAB10 PO; +CLON-592 PO; -CLON.5 PO; -PROP20TA96 PO; -VALS160T2 PO
== END | disposition home or self-care (01) ==
LOC: RADPV 09:47
PROVIDERS: ATTEND Internal Medicine Cardiovascular Disease
DX: I50.1 Left ventricular failure, unspecified (principal)
CPT/HCPCS: 93306